=== PATIENT | male | born 1980 | race Caucasian/White ===

== ENCOUNTER 2024-02-16 15:12 | Emergency (ER) | payer OTHER ==
[2024-02-16 15:32] VITALS: TEMP 97.4
[2024-02-16 15:53] LABS: BASOPHIL % 0.7 % (0.0-0.4); Basophil (Absolute #) 0.04 x10^3/uL (0-0.4); Eosinophil % 1.3 % (0.00-5.0); Eosinophil (Absolute #) 0.08 x10^3/uL (0-0.5); Hematocrit 43.5 % (42-50); Hemoglobin 15.2 g/dL (12.5-18.0); IMMATURE GRAN # 0.02 x10^3u/L (0.00-0.03); IMMATURE GRAN % 0.3 % (0.00-0.4); Lymphocyte (Absolute #) 1.37 x10^3/uL (1.0-4.6); Lymphocytes % 22.3 % (24.0-44.0); Mean Corpuscular Hgb Concent. 34.9 g/dL (32-36); Mean Platelet Volume 9.3 fL (7.5-11.0); Monocyte (Absolute #) 0.32 x10^3/uL (0.0-1.3); Monocytes % 5.2 % (0.0-12.0); Neutrophil % 70.2 % (36.0-66.0); Platelet Count 194 x10^3/uL (150-450); Red Blood Count 5.24 x10^6/uL (4.1-5.6); Red Cell Distribution Width 12.5 % (11.5-14.0); White Blood Count 6.1 x10^3/uL (4.0-10.5)
[2024-02-16] MEDS ORDERED: TORAdol 30 mg Injection ONE (16:03)
[2024-02-16] MEDS: TORAdol 30 mg Injection IV ONE (16:04)
[2024-02-16 16:09] LABS: ALBUMIN 4.6 g/dL (3.5-5.0); ANION GAP 14.2 MEQ/L (5-15); BILIRUBIN,TOTAL 0.5 mg/dL (0.2-1.3); Calcium 9.6 mg/dL (8.4-10.2); Creatinine 1 0.91 mg/dL (0.66-1.25); EST GLOMERULAR FILTRATION RATE 105.9 ML/MIN; Potassium 4.3 mmol/L (3.5-5.1); Total Protein 7.5 g/dL (6.3-8.2)
--- NOTE | 2024-02-16 16:12 | XRAY ---
Indication: Pain. Multiple contiguous images obtained through the abdomen and pelvis without contrast. Comparison: None Lung bases clear. Heart not enlarged. Stomach distended with food/fluid. Noncontrasted stomach and bowel loops appear nonobstructed with normal appendix. 2 cm left mid renal cortical cyst. No free fluid/air. Remaining liver, gallbladder, pancreas, spleen, adrenal glands, kidneys, ureters, bladder, and aorta are unremarkable for noncontrast exam. Osseous structures intact with minimal multilevel degenerative changes throughout spine greatest at L5-S1 and mild degenerative changes both hips. 8 mm left acetabulum bone island. Tiny fatty left inguinal hernia. Impression: 1. Left renal cyst, mild multilevel degenerative spondylosis, mild degenerative changes both hips, tiny left acetabulum bone island, and tiny fatty left inguinal hernia. 2. Remaining CT abdomen/pelvis without contrast exam is negative.
[2024-02-16 16:14] VITALS: PULSE 80; RESP 18; O2SAT 97
--- NOTE | 2024-02-16 16:14 | XRAY ---
Indication: Pain. Sagittal, coronal, and axial reformatted images lumbar spine obtained using raw data from same date CT abdomen/pelvis exam. Minimal multilevel thoracolumbar endplate spurring and mild L5-S1 broad-based disc bulge. Facets are symmetric. Sagittal and coronal reformatted images demonstrates normal lumbar alignment with mild L5-S1 disc space narrowing. No acute compression fracture or subluxation. CT abdomen/pelvis reported separately. Impression: Mild multilevel thoracolumbar degenerative spondylosis greatest at L5-S1.
[2024-02-16 16:27] LABS: Appearance Clear (Clear); Bacteria None Seen /HPF (None Seen); Bilirubin Negative (Negative); Blood Moderate (Negative); Epithelial Cells None Seen /HPF (None Seen); Glucose, Urine Negative (Negative); Hyaline Casts NONE SEEN /LPF (0-2); Ketones Negative (Negative); Leukocyte Esterase Negative (Negative); Nitrite Negative (Negative); Ph 5.5 (4.6-8.0); Protein,Urine Dip Negative (Negative); RBC 21-50 /HPF (0-5); Specific Gravity >=1.030 (1.005-1.030); Urobilinogen 0.2 mg/dL (0.2); WBC 0-2 /HPF (0-5)
[2024-02-16 16:30] LABS: ADD URINE CULTURE? NO (NO)
--- NOTE | 2024-02-16 16:47 | ERPHSYRPT ---
- History of Present Illness Time Seen by Provider: 02/16/24 15:30 Source: patient Exam Limitations: no limitations Patient Subjective Stated Complaint: pt c/o of lower left back pain Triage Nursing Assessment: Pt brought to the ER by his , hypertensive, rates pain as 7/10, pulses normal, denies pain with palpatation, stated that he reached for something and felt "a release of something" and the pain has worse as the day goes on, denies difficulty with breathing, doesn't appear to be in any distress Physician History: 43-year-old male presents emergency department for evaluation of low back pain. Patient states he was reaching overhead when he felt a release in his back. Patient then felt a dull ache in his left lower lumbar area. The pain radiating down to his left posterior thigh. Patient denies a history of the same. No associated fever. No change in bowel bladder function. No saddle anesthesia. No recent back procedures. Symptoms are moderate in intensity. Pain worse with forward flexion and straight leg raise. Pain improves while standing. Patient denies a history of chronic back pain. He otherwise feels well. at bedside. They voice no other complaints or concerns at this time. Portions of this note were created with voice recognition technology. There may be grammatical, spelling, punctuation or sound alike errors Timing/Duration: today Method of Injury: unknown Quality: aching Back Pain Location: lumbar spine Back Pain Radiation: lower legs (Left leg) Severity of Pain-Max: moderate Severity of Pain-Current: moderate Associated Symptoms: denies symptoms, lower back pain (Pain worse with movement and straight leg raise) Previous symptoms: no prior history Allergies/Adverse Reactions: No Known Drug Allergies Allergy (Verified 02/16/24 15:32) Hx Influenza Vaccination/Date Given: No Hx Pneumococcal Vaccination/Date Given: No Travel Risk - International Travel Have you traveled outside of the country in past 3 weeks: No - Emerging Infectious Disease Are you exhibiting symptoms associated with any current EIDs: No - Review of Systems Constitutional: No Symptoms, No Fever, No Chills Eyes: No Symptoms Ears, Nose, & Throat: No Symptoms Respiratory: No Symptoms, No Cough, No Dyspnea Cardiac: No Symptoms, No Chest Pain, No Edema, No Syncope Abdominal/Gastrointestinal: No Symptoms, No Abdominal Pain, No Nausea, No Vomiting, No Diarrhea Genitourinary Symptoms: No Symptoms, No Dysuria Musculoskeletal: No Symptoms, No Back Pain, No Neck Pain Skin: No Symptoms, No Rash Neurological: No Symptoms, No Dizziness, No Focal Weakness, No Sensory Changes Psychological: No Symptoms Endocrine: No Symptoms Hematologic/Lymphatic: No Symptoms Immunological/Allergic: No Symptoms All Other Systems: Reviewed and Negative - Past Medical History Pertinent Past Medical History: Yes Musculoskeletal History: Fractures - Past Surgical History Past Surgical History: Yes Other Surgical History: broken ankle with screws - Social History Smoking Status: Former smoker Exposure to second hand smoke: No Drug Use: none - Nursing Vital Signs Nursing Vital Signs: Initial Vital Signs Temperature 97.4 F 02/16/24 15:17 Pulse Rate 73 02/16/24 15:17 Blood Pressure 153/98 02/16/24 15:17 O2 Sat by Pulse Oximetry 97 02/16/24 15:17 Pain Scale Pain Intensity [] 7 Pain Intensity 7 - Physical Exam General Appearance: no apparent distress, alert Eye Exam: PERRL/EOMI, eyes nml inspection Ears, Nose, Throat Exam: normal ENT inspection, TMs normal, pharynx normal Neck Exam: normal inspection, non-tender, supple, full range of motion, No meningismus, No midline tenderness Respiratory Exam: normal breath sounds, lungs clear, airway intact, No respi ratory distress Cardiovascular Exam: regular rate/rhythm, normal heart sounds Gastrointestinal Exam: soft, No tenderness, No mass Extremity Exam: normal inspection, normal range of motion, No calf tenderness, No pedal edema Neurologic Exam: alert, oriented x 3, cooperative, anodizer II-XII nml as tested, normal mood/affect, nml station & gait, sensation nml, No motor deficits Skin Exam: normal color, warm, dry, No rash Lymphatic Exam: No adenopathy SpO2 Interpretation: normal SpO2: 97 O2 Delivery: Room Air - Course Nursing assessment & vital signs reviewed: Yes - CT Exams Abdomen/Pelvis CT Interpretation: Tele-radiologist Report (Left renal cortical cyst spine arthritis) Lumbar Spine CT Interpretation: Tele-radiologist Report (L5-S1 disc bulge, spinal arthritis) Ordered Tests: Active Orders 24 hr Category Date Time Status Tint Layer STAT Care 02/16/24 15:31 Active IV Insertion STAT Care 02/16/24 15:31 Active Pulse Oximetry (ED) STAT Care 02/16/24 15:31 Active ABDOMEN AND PELVIS W/0 CONTRAS [CT] Stat Exams 02/16/24 15:32 Completed RECONSTRUCTION [CT] Stat Exams 02/16/24 15:32 Completed CBC W DIFF Stat Lab 02/16/24 15:30 Completed CMP Stat Lab 02/16/24 15:30 Completed TROPONIN Q4H Lab 02/16/24 15:30 Completed TROPONIN Q4H Lab 02/16/24 19:45 Ordered TROPONIN Q4H Lab 02/16/24 23:45 Ordered UA W/RFX UR CULTURE Stat Lab 02/16/24 16:02 Completed Medication Summary Discontinued Medications Generic Name Dose Route Start Last Admin Trade Name Freq PRN Reason Stop Dose Admin Dexamethasone Sodium Phosphate 10 mg 02/16/24 17:56 Dexamethasone Sod Phosphate 10 Mg/Ml IM 02/16/24 17:57 STAT ONE Ketorolac Tromethamine 30 mg 02/16/24 16:02 02/16/24 16:04 Ketorolac Tromethamine 30 Mg/Ml Inj IV 02/16/24 16:03 30 mg STAT ONE Administration Ketorolac Tromethamine Confirm 02/16/24 16:03 Ketorolac Tromethamine 30 Mg/Ml Inj Administered 02/16/24 16:04 Dose 30 mg .ROUTE .[employer]-MED ONE Lab/Rad Data: Laboratory Result Diagrams 02/16/24 15:30 02/16/24 15:30 Laboratory Results 02/16/24 02/16/24 02/16/24 Range/Units 16:02 15:30 15:30 WBC (4.0-10.5) x10^3/uL RBC (4.1-5.6) x10^6/uL Hgb (12.5-18.0) g/dL Hct (42-50) % MCV (78-100) fL MCH (26-32) pg MCHC (32-36) g/dL RDW (11.5-14.0) % Plt Count (150-450) x10^3/uL MPV (7.5-11.0) fL Gran % (36.0-66.0) % Immature Gran % (Auto) (0.00-0.4) % Nucleat RBC Rel Count (0.00-0.1) % Eos # (Auto) (0-0.5) x10^3/uL Immature Gran # (Auto) (0.00-0.03) x10^3u/L Absolute Lymphs (auto) (1.0-4.6) x10^3/uL Absolute Monos (auto) (0.0-1.3) x10^3/uL Absolute Nucleated RBC (0.00-0.01) x10^3u/L Lymphocytes % (24.0-44.0) % Monocytes % (0.0-12.0) % Eosinophils % (0.00-5.0) % Basophils % (0.0-0.4) % Absolute Granulocytes (1.4-6.9) x10^3/uL Basophils # (0-0.4) x10^3/uL Sodium 141 (135-145) mmol/L Potassium 4.3 (3.5-5.1) mmol/L Chloride 104 (98-107) mmol/L Carbon Dioxide 27 (22-30) mmol/L Anion Gap 14.2 (5-15) MEQ/L BUN 21 H (9-20) mg/dL Creatinine 0.91 (0.66-1.25) mg/dL Estimated GFR 105.9 ML/MIN Glucose 97 (74-106) mg/dL Calcium 9.6 (8.4-10.2) mg/dL Total Bilirubin 0.50 (0.2-1.3) mg/dL AST 25 (17-59) U/L ALT 24 (0-50) U/L Alkaline Phosphatase 50 (38-126) U/L Troponin I < 0.012 (0.000-0.033) ng/mL Serum Total Protein 7.5 (6.3-8.2) g/dL Albumin 4.6 (3.5-5.0) g/dL Urine Color Yellow (Yellow) Urine Appearance Clear (Clear) Urine pH 5.5 (4.6-8.0) Ur Specific [place] >=1.030 A (1.005-1.030) Urine Protein Negative (Negative) Urine Glucose (UA) Negative (Negative) mg/dL Urine Ketones Negative (Negative) Urine Blood Moderate A (Negative) Urine Nitrite Negative (Negative) Urine Bilirubin Negative (Negative) Urine Urobilinogen 0.2 (0.2) mg/dL Ur Leukocyte Esterase Negative (Negative) U Hyaline Cast (Auto) NONE SEEN (0-2) /LPF Urine Microscopic RBC 21-50 A (0-5) /HPF Urine Microscopic WBC 0-2 (0-5) /HPF Ur Epithelial Cells None Seen (None Seen) /HPF Urine Bacteria None Seen (None Seen) /HPF Urine Culture Reflexed NO (NO) 02/16/24 Range/Units 15:30 WBC 6.1 (4.0-10.5) x10^3/uL RBC 5.24 (4.1-5.6) x10^6/uL Hgb 15.2 (12.5-18.0) g/dL Hct 43.5 (42-50) % MCV 83.0 (78-100) fL MCH 29.0 (26-32) pg MCHC 34.9 (32-36) g/dL RDW 12.5 (11.5-14.0) % Plt Count 194 (150-450) x10^3/uL MPV 9.3 (7.5-11.0) fL Gran % 70.2 H (36.0-66.0) % Immature Gran % (Auto) 0.3 (0.00-0.4) % Nucleat RBC Rel Count 0.0 (0.00-0.1) % Eos # (Auto) 0.08 (0-0.5) x10^3/uL Immature Gran # (Auto) 0.02 (0.00-0.03) x10^3u/L Absolute Lymphs (auto) 1.37 (1.0-4.6) x10^3/uL Absolute Monos (auto) 0.32 (0.0-1.3) x10^3/uL Absolute Nucleated RBC 0.00 (0.00-0.01) x10^3u/L Lymphocytes % 22.3 L (24.0-44.0) % Monocytes % 5.2 (0.0-12.0) % Eosinophils % 1.3 (0.00-5.0) % Basophils % 0.7 (0.0-0.4) % Absolute Granulocytes 4.30 (1.4-6.9) x10^3/uL Basophils # 0.04 (0-0.4) x10^3/uL Sodium (135-145) mmol/L Potassium (3.5-5.1) mmol/L Chloride (98-107) mmol/L Carbon Dioxide (22-30) mmol/L Anion Gap (5-15) MEQ/L BUN (9-20) mg/dL Creatinine (0.66-1.25) mg/dL Estimated GFR ML/MIN Glucose (74-106) mg/dL Calcium (8.4-10.2) mg/dL Total Bilirubin (0.2-1.3) mg/dL AST (17-59) U/L ALT (0-50) U/L Alkaline Phosphatase (38-126) U/L Troponin I (0.000-0.033) ng/mL Serum Total Protein (6.3-8.2) g/dL Albumin (3.5-5.0) g/dL Urine Color (Yellow) Urine Appearance (Clear) Urine pH (4.6-8.0) Ur Specific [place] (1.005-1.030) Urine Protein (Negative) Urine Glucose (UA) (Negative) mg/dL Urine Ketones (Negative) Urine Blood (Negative) Urine Nitrite (Negative) Urine Bilirubin (Negative) Urine Urobilinogen (0.2) mg/dL Ur Leukocyte Esterase (Negative) U Hyaline Cast (Auto) (0-2) /LPF Urine Microscopic RBC (0-5) /HPF Urine Microscopic WBC (0-5) /HPF Ur Epithelial Cells (None Seen) /HPF Urine Bacteria (None Seen) /HPF Urine Culture Reflexed (NO) - Progress Progress: improved Progress Note: 43-year-old male presents to emergency department for evaluation of back pain. CT shows arthritic changes disc bulge urinalysis reveals hematuria. Patient received Toradol for pain control. Pain significantly improved. Per request patient was also given Decadron. Prescription for Toradol forwarded to patient's pharmacy. Patient is ready for discharge. at bedside. They voiced no other complaints or concerns at this time. Complexity problem addressed is moderate acute complicated No critical care time Complexity of data reviewed and analyzed is moderate. Test ordered test rev iewed results analyzed and correlated clinically with history and physical exam. Risk of complication and or risk morbidity/mortality patient management is moderate. Prescription for Toradol forwarded to patient's pharmacy. Vital stable. Time spent to discharge patient approximately 20 minutes. Plan of care established for shared decision making. No social determinants of health present impede follow-up. Portions of this note were created with voice recognition technology. There may be grammatical, spelling, punctuation or sound alike errors 02/16/24 18:02 Counseled pt/family regarding: lab results - Departure Departure Disposition: Home Clinical Impression: Hematuria, Arthritis, lumbar spine, L5-S1 disc bulge Condition: Stable Critical Care Time: No Referrals: DOCTOR,NO FAMILY [Primary Care Provider] - Follow up/PCP as directed CISCO WEINER MD [ACTIVE STAFF] - Follow up/PCP as directed Additional Instructions: Discharge/Care Plan YASIR PARSONS was seen on 02/16/24 in the Emergency Room. The patient was counseled regarding Diagnosis,Lab results, Imaging studies, need for follow up and when to return to the Emergency Room. Prescriptions given: Discharge Note I have spoken with the patient and/or caregivers. I have explained the patient's condition, diagnosis and treatment plan based on the information available to me at this time. I have answered the patient's and/or caregiver's questions and addressed any concerns. The patient and/or caregivers have as good understanding of the patient's diagnosis, condition and treatment plan as can be expected at this point. The vital signs have been stable. The patient's condition is stable and appropriate for discharge from the emergency department. The patient will pursue further outpatient evaluation with the primary care physician or other designated or consulting physician as outlined in the discharge instructions. The patient and/or caregivers are agreeable to this plan of care and follow-up instructions have been explained in detail. The patient and/or caregivers have received these instruction. The patient/and or caregivers are aware that any significant change in condition or worsening of symptoms should prompt an immediate return to this or the closest emergency department or call 911. Prescriptions: Ketorolac Trometh 10 mg Tab [TORAdol 10 MG TABLET] 10 mg PO TID 5 Days #15 tablet
[2024-02-16] MEDS ORDERED: DECADRON 10MG INJ. ONE (18:10)
[2024-02-16] MEDS: DECADRON 10MG INJ. IM ONE (18:11)
[2024-02-16 18:20] VITALS: BP 167/112
== END 2024-02-16 18:24 | disposition home or self-care (01) ==
LOC: ED 15:12
DX: M51.37 Other intervertebral disc degeneration, lumbosacral region (principal); M47.816 Spondylosis without myelopathy or radiculopathy, lumbar region; R31.9 Hematuria, unspecified; M54.50 Low back pain, unspecified; Z79.899 Other long term (current) drug therapy
CPT/HCPCS: 36000; 36415; 74176; 76376; 80053; 81001; 84484; 85025; 93041; 94760; 96372; 96374; 99284; J1100; J1885

== ENCOUNTER 2024-08-16 05:50 | Day surgery (SDC) | payer OTHER ==
[2024-08-16] MEDS: Lactated Ringers 1,000 ML IV SCH (06:01)
[2024-08-16] MEDS ORDERED: Versed 2 MG/2 ML Injection ONE (07:40)
[2024-08-16] MEDS ORDERED: DIPRIVAN 200 MG/20 ML IV ONE (07:40)
[2024-08-16 08:35] VITALS: RESP 16
[2024-08-16 08:43] VITALS: BP 135/105; PULSE 86; TEMP 98.1; O2SAT 99
--- NOTE | 2024-08-16 23:18 | OP ---
SURGERY DATE/TIME: 08/16/2024 [id number] PREOPERATIVE DIAGNOSIS: Screening exam. POSTOPERATIVE DIAGNOSIS: Normal colon. PROCEDURE: Colonoscopy. SURGEON: Ian Botello MD ANESTHESIA: Medication given by the Anesthesia Department. HISTORY: The patient is a 43-year-old white male patient presenting now for screening colonoscopy. The patient was appraised of the risks of the procedure including risk of perforation, phlebitis, untoward reaction to medication, bleeding and missed lesions. The patient verbalized understanding and desired to have the procedure performed. DESCRIPTION OF PROCEDURE AND FINDINGS: Patient was given medication by the Anesthesia Department. He had continuous pulse oximetry, ECG monitoring, and intermittent blood pressure monitoring during the examination. He was placed in the left lateral decubitus position. Digital rectal examination was performed and revealed normal anal sphincter tone and no masses. The flexible Olympus videocolonoscope was used to intubate the rectum. A view of the colon was developed sequentially to the cecum. Upon insertion and withdrawal, including retroflexion in the rectum, no mucosal lesions were noted. The scope was removed. The patient tolerated the procedure well and was sent back to outpatient recovery in good condition. The prep was noted to be fair to good.
== END 2024-08-16 08:50 | disposition home or self-care (01) ==
LOC: SDC 05:50
PROVIDERS: ATTEND Family Medicine
DX: Z12.11 Encounter for screening for malignant neoplasm of colon (principal)
CPT/HCPCS: J2250; J2704